=== PATIENT | male | born 1985 | race Caucasian/White ===

== ENCOUNTER 2019-02-17 16:39 | Inpatient (IN) | payer SELFPAY ==
[2019-02-17 17:10] VITALS: BP 141/89; PULSE 100; RESP 16; TEMP 36.7; O2SAT 98; BMI 22.2
--- NOTE | 2019-02-17 19:15 | ED_ITS ---
Entered by Ingrid Gutierrez, acting as scribe for Feb 17, 2019 16:39 HPI - Psych General: Chief Complaint: Psychiatric Symptoms Stated Complaint: Mhe Time Seen by Provider: 02/17/19 19:15 Source: patient and family Mode of arrival: ambulatory Limitations: no limitations History of Present Illness: HPI Narrative: 33 yo Male presents to Ed with complaint of psychiatric symptoms. Pt states he is stressed out and wants to go to the NPU. Pt's family states that the patient lost his father to a heart attack recently and then couldn't locate his mother yesterday. Pt's family states that the patient freaked out yesterday. Pt states he was treated for depression in 2012 or 2013 and was prescribed lorazepam once or twice a day. Pt states that he is not currently on any medications. Pt states that he was also previously treated with Paxil but didn't take it like he should. Pt denies any suicidal or homicidal ideation. Pt's grandmother states that she thinks he needs to be admitted to the NPU due to his episode of freaking out yesterday. Pt's grandmother states that the patient has been trying to get off of drugs. Pt states that he is not currently taking his suboxone because it makes him feel just as high as street drugs. Pt states that he would probably test positive for methamphetamine right now. complaint: feels depressed and other (stressed) Onset (ago): unknown Duration: getting worse History of same: Yes Relieving factors: none Exacerbating factors: none Context: recent drug abuse and significant life stressor Associated psychiatric symptoms: depression Associated symptoms: Reports depression; Deny homicidal ideation or suicidal ideation Treatments prior to arrival: none Review of Systems General: Reports: 10 or more systems reviewed and unremarkable except in HPI and below Psych: Reports: anxiety, depression and panic attacks; Denies: suicidal ideation or homicidal ideation PFSH ED PFSH: Statuses (acute, chronic, etc) shown below reflect problem list status as previously entered and may not be historically accurate Medical History (Updated 02/17/19 @ 22:49 by Marialuisa Jimenez MD, [facility] – [place]) Depression (Acute) Social History (Updated 02/17/19 @ 19:29 by Ingrid Gutierrez) Smoking and tobacco status: current every day smoker Substance/Drug Use: current Substance/Drug use type: Methamphetamine Physical Exam Const: COMMON NORMALS: no apparent distress, average body habitus, oriented x3, no limitations, healthy appearing, alert and well nourished HENMT: COMMON NORMALS: normocephalic, head/scalp atraumatic, hearing grossly normal bilaterally, external ears normal, EAC's normal, TM's normal bilaterally, external nose normal, nasal mucous membranes and turbinates normal, moist oral mucous membranes, oropharynx normal, dentition normal and gingiva normal HEAD & SCALP: normocephalic and atraumatic NOSE: external nose normal and nasal mucous membranes and turbinates normal EXTERNAL EAR: Yes external ears normal EXTERNAL AUDITORY CANAL: EAC's normal TYMPANIC MEMBRANE: TM's normal bilaterally Eye: COMMON NORMALS: PERRL, EOMs intact bilaterally, conjunctivae normal, no scleral icterus, no papilledema, normal visual scott by confrontation and fundi normal bilaterally CONJUNCTIVA: Yes conjunctivae normal PUPIL: Yes PERRL DIRECT OPHTHALMOSCOPY: Yes no papilledema and Yes fundi normal bilaterally Neck/C-Spine: COMMON NORMALS: full ROM, supple, no meningeal signs, no JVD and no carotid bruits Chest: COMMONS NORMALS: inspection of chest normal and palpation of chest normal Resp: COMMON NORMALS: normal respiratory effort, no retractions, no use of accessory muscles, clear to auscultation bilaterally and percussion normal AUSCULTATION: clear to auscultation bilaterally PERCUSSION: percussion normal Cardio: COMMON NORMALS: no JVD, regular rate, regular rhythm, S1 normal heart sound, S2 normal heart sound, no gallops, no clicks, no murmurs, no rub and peripheral pulses 2+ throughout RATE: regular rate RHYTHM: regular rhythm HEART SOUNDS: S1 normal and S2 normal PERIPHERAL PULSES: pulses 2+ throughout GI: COMMON NORMALS: normal to inspection, nondistended, normoactive bowel sounds, soft to palpation, non-tender, no hepatosplenomegaly, no masses and no bruits PALPATION: Yes soft and Yes no hepatosplenomegaly : COMMON NORMALS: Yes no CVA tenderness BLADDER/KIDNEY EXAM: Yes no CVA tenderness Back/Pelvis: COMMON NORMALS: no CVA tenderness Extremity: COMMON NORMALS: normal to inspection, full ROM, normal capillary refill, no joint enlargement, no clubbing, cyanosis or edema, no calf tenderness and no pedal edema Neuro: COMMON NORMALS: oriented x3 SENSORIUM/ORIENTATION: Yes alert MENINGEAL SIGNS: Yes no meningeal signs Psych: COMMON NORMALS: thought process normal, speech normal, denies homicidal ideation and denies suicidal ideation APPEARANCE: Yes grossly normal ATTITUDE: Yes calm SPEECH: Yes normal speech THOUGHT PROCESS: normal thought process THOUGHT CONTENT: Yes normal thought content Skin: COMMON NORMALS: no rashes or lesions noted, no wounds, skin turgor normal, no jaundice, no petechiae and no mottling GENERAL SKIN EXAM: no rashes or lesions noted and turgor normal MDM - Psych MDM Narrative: Medical decision making narrative: Patient who presented to the ED with symptoms of depression and bipolar disorder. He is admitted to the neuropsychiatric unit for further evaluation and management. Lab Data: Labs: Lab Results 02/17/19 02/17/19 02/17/19 Range/Units 19:40 19:55 19:55 WBC 6.1 (4.0-10.0) 10^3/ uL RBC 4.83 (4.1-5.3) 10^6/u L Hgb 13.8 (11.7-16.6) g/dL Hct 41.8 L (42.0-52.0) % MCV 86.5 (80-94) fL MCH 28.6 (28.0-34.0) pg MCHC 33.0 (30.0-36.0) g/dL RDW 12.5 (12.1-15.1) % Plt Count 260 (130-400) 10^3/c mm MPV 9.8 (7.4-10.4) fL Neut % (Auto) 54.9 % Lymph % (Auto) 33.2 % Gregg % (Auto) 11.1 % Eos % (Auto) 0.0 % Baso % (Auto) 0.5 % Neut # (Auto) 3.4 (1.8-7.7) 10^3/u L Lymph # (Auto) 2.0 (0.8-4.8) 10^3/u L Gregg # (Auto) 0.7 (0.2-0.9) 10^3/u L Eos # (Auto) 0.0 (0.0-0.8) 10^3/u L Baso # (Auto) 0.0 (0.0-0.1) 10^3/u L Nucleated RBC % (a uto) 0 % Nucleated RBCs # 0.0 /100WBC Sodium 138 (136-145) mmol/L Potassium 4.1 (3.5-5.1) mmol/L Chloride 101 (98-107) mmol/L Carbon Dioxide 26 (22-29) mmol/L Anion Gap 15.1 (5-19) BUN 9 (6-20) mg/dL Creatinine 0.7 (0.7-1.2) mg/dL GFR Calculation 130.7 H (90-130) mL/min Glucose 102 (74-109) mg/dL Calcium 9.9 (8.6-10.0) mg/Dl Total Bilirubin 0.2 (0.15-1.2) mg/dL AST 12 (0-40) U/L ALT 9 (0-41) U/L Alkaline Phosphata se 95 (40-130) IU/L Total Protein 7.2 (6.6-8.7) g/dL Albumin 4.4 (3.5-5.2) g/dL Globulin 2.8 (1.3-4.6) g/dL Salicylates < 0.3 L (3-10) mg/dL Urine Opiates Scre en Negative (Negative) ng/mL Acetaminophen < 5.0 L (10-30) ug/mL Ur Barbiturates Sc reen Negative (Negative) ng/mL Ur Phencyclidine S crn Negative (Negative) ng/mL Ur Amphetamines Sc reen Positive H (Negative) ng/mL U Benzodiazepines Scrn Positive H (Negative) ng/mL Urine Cocaine Scre en Negative (Negative) ng/mL U Marijuana (THC) Screen Negative (Negative) ng/mL Ethyl Alcohol < 10 (0-10) mg/dL Discharge Plan Discharge Patient Disposition: Admitted As Inpatient Admit Provider: Conrado Elizalde Clinical Impression: Depression, Bipolar disorder Condition: Stable Interventions: ED Discharge Assessment Last Done: 02/17/19 22:29 Coding Level of Care Code ED Cutting And Splicing Supervisor for Chg Fwd Exam Problem Focused The documentation recorded by the Matt acharya Carmen, accurately reflects the service I personally performed and the decisions made by Barbara kennedy Adegoke I, MD, [facility] – [place], [place] Feb 17, 2019 16:39
--- NOTE | 2019-02-17 19:48 | PC.NURSE ---
Patient Assessment Patient reports to ED with extreme stress, anxiousness, and general feelings of overwhelm. Patient lost his father in the previous year unexpectedly and states he was unable to get ahold of his mother via phone yesterday and has been very anxious since.
--- NOTE | 2019-02-17 19:57 | PC.NURSE ---
Patient denies SI at this time. Patient has family at bedside.
[2019-02-17 20:01] LABS: Amphetamines Screen Urine Positive (Negative); Barbiturates Screen Urine Negative (Negative); Benzodiazepines Screen Urine Positive (Negative); Cocaine Screen Urine Negative (Negative); Opiate Screen Urine Negative (Negative); PCP Screen Urine Negative (Negative); THC Screen Urine Negative (Negative)
[2019-02-17 20:05] LABS: Basophils % 0.5 %; Hematocrit 41.8 % (42.0-52.0); Hemoglobin 13.8 g/dL (11.7-16.6); Lymphocytes % 33.2 %; Mean Corpuscular Hemoglobin 28.6 pg (28.0-34.0); Mean Corpuscular Volume 86.5 fL (80-94); Mean Platelet Volume 9.8 fL (7.4-10.4); Monocytes # 0.7 10^3/uL (0.2-0.9); Monocytes % 11.1 %; Neutrophils # 3.4 10^3/uL (1.8-7.7); Neutrophils % 54.9 %; Nucleated Red Blood Cells % 0 %; Platelet Count 260 10^3/cmm (130-400); Red Blood Count 4.83 10^6/uL (4.1-5.3); Red Cell Distribution Width 12.5 % (12.1-15.1); White Blood Count 6.1 10^3/uL (4.0-10.0)
[2019-02-17 20:19] LABS: Alanine Aminotransferase 9 U/L (0-41); Albumin Level 4.4 g/dL (3.5-5.2); Alkaline Phosphatase 95 IU/L (40-130); Anion Gap 15.1 (5-19); Aspartate Amino Transferase 12 U/L (0-40); Blood Urea Nitrogen 9 mg/dL (6-20); Calcium 9.9 mg/Dl (8.6-10.0); Carbon Dioxide 26 mmol/L (22-29); Chloride 101 mmol/L (98-107); Globulin 2.8 g/dL (1.3-4.6); Glomerular Filtration Rate 130.7 mL/min (90-130); Glucose 102 mg/dL (74-109); Potassium 4.1 mmol/L (3.5-5.1); Sodium 138 mmol/L (136-145); Total Bilirubin 0.2 mg/dL (0.15-1.2); Total Protein 7.2 g/dL (6.6-8.7)
[2019-02-17 20:21] LABS: Acetaminophen < 5.0 ug/mL (10-30); Alcohol Level < 10 mg/dL (0-10); Salicylate < 0.3 mg/dL (3-10)
[2019-02-17 23:18] VITALS: BP 128/87; PULSE 88; RESP 19; TEMP 36.4; O2SAT 99
[2019-02-18 06:00] VITALS: BP 128/83; PULSE 83; RESP 18; TEMP 36.7; O2SAT 97
[2019-02-18] MEDS: nicotine 21 mg Patch 1 PATCH TRANSDERMA (08:42)
[2019-02-18] MEDS: propranolol 20 mg Tablet PO (11:12)
--- NOTE | 2019-02-18 11:14 | PC.NURSE ---
PT NOTE: INDERAL 20MG PO GIVEN FOR ANXIETY.
--- NOTE | 2019-02-18 13:29 | P.HP_ITS ---
Providers/Chief Complaint Admitting Physician: Conrado Elizalde MD Chief Complaint: Mhe HPI NPU History of Present Illness Bakari Lord is a 33 year old male who presents today reporting that he was first hospitalized in 2018 and presents today as his drug use continues to go unchecked and his depression mounds. He reports that prior to being 17 or so he started experimenting with cigarettes alcohol marijuana and by the time he was 18 or 19 now only had that become a problem but he was already using other drugs. He had a possession charge in 2016 and over the last 2 years the consequences of his drug use have mounted. He had an inpatient rehab at [facility] last year that ended in August it was a 30-day program that he completed. He reports that he has struggled with depression and that his dad of a heart attack in March of last year and he has been living with his dad and his dad also struggle with addiction. He also went to [place] for the 120-day shock program last year this was secondary to a probation violation he also has another possession charge. He feels very anxious and somewhat regretful of the fact that he is messed so much. We discussed the risk benefits and alt ernatives of antidepressant as well as naltrexone. He endorsed having a trial of naltrexone to his belief when he was in rehab and then it was not effective per his report. He denies still having significant treatment for mental health issues reporting never having been on an antidepressant to his knowledge except for maybe Paxil which she reports he never gave any chance after his last hospitalization in 2018. He understood and agreed to proceed as is documented in this note. Psychiatric history: As above no medications this is second hospitalization. Substance abuse history: He endorses having a history of drug use that spans over half of his life. He reports smoking cigarettes, but denies significant alcohol use at this point denies marijuana use at this point reports that most of his energies and activities around methamphetamine use. He has been to rehab but denies having any DUIs. Family history: Endorses mental health issues on both sides of the family. He reports addiction issues on his mother's side of the family and with his father. He is unclear if there have been any suicide attempts or completions in his family. Developmental history: He reports that his mom's and delivery of him were unremarkable. That he learned to walk and talk and met his developmental milestones on time. He denied any speech therapy, emotional support learning support or special education classes. Psychosocial history: His mother and father were together when he was born and he is the only product of their union. Neither of them had any other children that he is aware of. His childhood was tough because he feels his family really was not there for him. He denies any emotional physical or sexual abuse. He did not graduate from high school but did get his GED in 2019 during the hunting 20-day stay. He endorses that he is a heterosexual and his longest relationship was 5 years. He is never been , he has never had children, he has never been in the , and he does not endorse any jainism belief system. He reports he did hold a job from 2015 2009 reports that he currently lives with his paternal grandparents. Legal history: He endorses numerous [facility] stays over mostly short except for that recent 1. Meds NPU Home Medications Medication Instructions Recorded Confirmed Type No Known Home Medications 02/17/19 02/17/19 History Allergies Allergy/AdvReac Type Severity Reaction Status Date / Time No Known Allergies Allergy Verified 02/17/19 17:16 PFSH NPU PFSH: Statuses (acute, chronic, etc) shown below reflect problem list status a s previously entered and may not be historically accurate Medical History (Updated 02/19/19 @ 06:43 by Conrado Elizalde MD) Depression (Acute) Social History (Updated 02/17/19 @ 19:29 by Ingrid Gutierrez) Smoking and tobacco status: current every day smoker Substance/Drug Use: current Substance/Drug use type: Methamphetamine Mental Status Exam MSE Comments: This is a well-nourished well-developed white male with adequate dress grooming and eye contact. Poor dentition. No abnormal movements except for psychomotor retardation. Cooperative with exam in no acute distress. Speech was decreased rate and volume. Mood described as depressed affect congruent. Thought process organized. Thought content: Patient denied any suicidal or homicidal ideation, there were no delusions reported or noted, he denied any auditory visual hallucinations. Attention and concentration were intact and memory appeared reliable but none were formally tested. He is alert and oriented x3. Insight and judgment appear fair. Vitals/I&O/Wt Last Vital Signs Temp 97.6 F 02/19/19 06:00 Pulse 75 02/19/19 06:00 Resp 22 H 01/09/20 06:00 BP 97/59 02/19/19 06:00 Pulse Ox 98 02/19/19 06:00 Weight last 48 hrs Weight 70.307 kg A&P Assessment and plan (1) Methamphetamine dependence: Status: Acute Code(s): F15.20 - Other stimulant dependence, uncomplicated Additional A&P Information Additional A&P Information: This is a 33-year-old white male with a long history and depression and anxiety with the mental health issues having limited to no interventions who presents in active addiction with low mood and recent thoughts to kill himself. 1. Continue current medications. Except: 2. Start Prozac 20 mg p.o. every morning. 3. Encourage individual, group and milieu therapy. 4. Continue every 15 minute checks for safety. 5. Encourage discharge to the highest level of sober living/recovery treatment to which he is willing to commit. Involuntary Hold Information 96 Hour Hold: 96 Hour Involuntary Admission: No Attestations NPU Medical Necessity Statement*: Inpatient hospitalization is medically necessary and the clinically appropriate intervention at this time. Patient will be in the hospital for over 2 midnights. We will monitor medication and titrate to effect. Likely length of stay 2 to 4 days. Coding Level of Care Code Acute Implementation Project Manager for Jn Leonard Diagnoses Methamphetamine dependence F15.20
[2019-02-18 14:00] VITALS: BP 100/66; PULSE 89; RESP 18; TEMP 36.8; O2SAT 98
[2019-02-18 19:55] VITALS: BP 109/67; PULSE 80; RESP 22; TEMP 36.9; O2SAT 98
[2019-02-19 06:00] VITALS: BP 97/59; PULSE 75; RESP 22; TEMP 36.4; O2SAT 98
--- NOTE | 2019-02-19 08:08 | P.PN_ITS ---
Subjective NPU Subjective: Interval history: Bakari presents today reporting that he is feeling a little better. He still has not identified an exact course but reports that he is optimistic that as his mood gets better that things will get better overall. We discussed Vivitrol and his previous response to ReVia wondering if it represented an adverse response to the medication or indication he had been using too close to the initiation of the medication. Unfortunately he does not have recollection of those circumstances. He reports that he is sleeping a lot catching up on his sleep and eating fine. Mental Status Exam MSE Comments: This is a well-nourished well-developed white male with adequate dress grooming and eye contact. Poor dentition. No abnormal movements except for psychomotor retardation. Cooperative with exam in no acute distress. Speech was decreased rate and volume. Mood described as depressed but better slightly, affect congruent. Thought process organized. Thought content: Patient denied any suicidal or homicidal ideation though he does report thoughts of suicide he endorses feeling safe on the unit and being able to contract for safety, there were no delusions reported or noted, he denied any auditory visual hallucinations. Attention and concentration were intact and memory appeared reliable but none were formally tested. He is alert and oriented x3. Insight and judgment appear fair. Vitals/I&O/Wt Last Vital Signs Temp 98.2 F 02/20/19 06:00 Pulse 73 02/20/19 06:00 Resp 16 02/20/19 06:00 BP 125/83 02/20/19 06:00 Pulse Ox 98 02/20/19 06:00 A&P Additional A&P Information Additional A&P Information: This is a 33-year-old white male with a long history and depression and anxiety with the mental health issues having limited to no interventions who presents in active addiction with low mood and recent thoughts to kill himself. 1. Continue current medications. 2. Encourage individual, group and milieu therapy. 3. Continue every 15 minute checks for safety. 4. Encourage discharge to the highest level of sober living/recovery treatment to which he is willing to commit. Involuntary Hold Information 96 Hour Hold: 96 Hour Involuntary Admission: No Attestations NPU Medical Necessity Statement*: Inpatient hospitalization is medically necessary and the clinically appropriate intervention at this time. We will monitor medication and titrate to effect. Likely length of stay 2 to 4 days. Coding Level of Care Code Acute Pathology Collector for Jn Leonard
[2019-02-19] MEDS: propranolol 20 mg Tablet PO (10:58)
[2019-02-19] MEDS: fluoxetine 20 mg Capsule PO (10:59)
[2019-02-19] MEDS: nicotine 21 mg Patch 1 PATCH TRANSDERMA (11:04)
--- NOTE | 2019-02-19 11:05 | PC.NURSE ---
PRN INDERAL 20 MG GIVEN PO PER PT C/O ANXIETY. ISOLATIVE TO ROOM, DID NOT PARTICIPATE IN MORNING GROUP SESSION. ASKED FOR THE LITTLE BLUE PILL THEY GAVE ME YESTERDAY. WILL CONT TO MONITOR.
[2019-02-19 14:00] VITALS: BP 96/60; PULSE 78; RESP 16; TEMP 36.8; O2SAT 97
[2019-02-19 20:44] VITALS: BP 107/63; PULSE 81; RESP 16; TEMP 36.6; O2SAT 97
[2019-02-20 06:00] VITALS: BP 125/83; PULSE 73; RESP 16; TEMP 36.8; O2SAT 98
[2019-02-20] MEDS: fluoxetine 20 mg Capsule PO (09:05)
[2019-02-20] MEDS: nicotine 21 mg Patch 1 PATCH TRANSDERMA (12:09)
[2019-02-20 14:00] VITALS: BP 108/69; PULSE 89; RESP 18; TEMP 36.4; O2SAT 95
--- NOTE | 2019-02-20 14:31 | P.PN_ITS ---
Subjective NPU Subjective: Interval history: Bakari presented to the session reporting he is doing better on the medication but is still really exhausted from being up for days. He is endorsing a plan to return to live with grandmother but social workers are working hard to figure out if that is really viable or where grandma is in all this. He is resistant to talk about rehabilitation. Mental Status Exam MSE Comments: This is a well-nourished well-developed white male with adequate dress grooming and eye contact. Poor dentition. No abnormal movements except for psychomotor retardation. Cooperative with exam in no acute distress. Speech was decreased rate and volume. Mood described as depressed but better slightly, affect congruent. Thought process organized. Thought content: Patient denied any suicidal or homicidal ideation though he does report thoughts of suicide he endorses feeling safe on the unit and being able to contract for safety, there were no delusions reported or noted, he denied any auditory visual hallucinations. Attention and concentration were intact and memory appeared reliable but none were formally tested. He is alert and oriented x3. Insight and judgment appear fair. Vitals/I&O/Wt Last Vital Signs Temp 98.2 F 02/20/19 06:00 Pulse 73 02/20/19 06:00 Resp 16 02/20/19 06:00 BP 125/83 02/20/19 06:00 Pulse Ox 98 02/20/19 06:00 A&P Additional A&P Information Additional A&P Information: This is a 33-year-old white male with a long history and depression and anxiety with the mental health issues having limited to no interventions who presents in active addiction with low mood and recent thoughts to kill himself. 1. Continue current medications. 2. Encourage individual, group and milieu therapy. 3. Continue every 15 minute checks for safety. 4. Encourage discharge to the highest level of sober living/recovery treatment to which he is willing to commit. Involuntary Hold Information 96 Hour Hold: 96 Hour Involuntary Admission: No Attestations NPU Medical Necessity Statement*: Inpatient hospitalization is medically necessary and the clinically appropriate intervention at this time. We will monitor medication and titrate to effect. Likely length of stay 2 to 4 days. Coding Level of Care Code Acute Data Communications Engineer for Jn Leonard
[2019-02-20 19:51] VITALS: BP 118/79; PULSE 88; RESP 18; TEMP 36.6; O2SAT 96
[2019-02-21 06:00] VITALS: BP 108/69; PULSE 72; RESP 16; TEMP 36.6; O2SAT 97
[2019-02-21] MEDS: fluoxetine 20 mg Capsule PO (09:06)
[2019-02-21] MEDS: nicotine 21 mg Patch 1 PATCH TRANSDERMA (12:20)
[2019-02-21 13:49] VITALS: BP 119/67; PULSE 84; RESP 18; TEMP 36.7; O2SAT 96
--- NOTE | 2019-02-21 14:37 | P.PN_ITS ---
Subjective NPU Subjective: Interval history: Bakari continues to be fairly lackluster. He denies that this represents fully a crash post mass binge. He reports that his lying around is a representation of low his mood is right now. We discussed the risks benefits and alternatives of considering Wellbutrin and he understood and agreed to proceed as is documented in his note. We reviewed different medication trials had a denies being on location in the past and was willing to give it a try. Mental Status Exam MSE Comments: This is a well-nourished well-developed white male with adequate dress grooming and eye contact. Poor dentition. No abnormal movements except for psychomotor retardation. Cooperative with exam in no acute distress. Speech was decreased rate and volume. Mood described as depressed, affect congruent. Thought process organized. Thought content: Patient denied homicidal ideation though he does report thoughts of suicide he endorses feeling safe on the unit and being able to contract for safety, there were no delusions reported or noted, he denied any auditory visual hallucinations. Attention and concentration were intact and memory appeared reliable but none were formally tested. He is alert and oriented x3. Insight and judgment appear fair. Vitals/I&O/Wt Last Vital Signs Temp 98.1 F 02/21/19 13:49 Pulse 84 02/21/19 13:49 Resp 18 02/21/19 13:49 BP 119/67 02/21/19 13:49 Pulse Ox 96 02/21/19 13:49 A&P Additional A&P Information Additional A&P Information: This is a 33-year-old white male with a long history and depression and anxiety with the mental health issues having limited to no interventions who presents in active addiction with low mood and recent thoughts to kill himself. 1. Continue current medications. Except: Initiate Wellbutrin SR 150 mg by mouth twice a day at approximately 8 a.m. and 5 PM 2. Encourage individual, group and milieu therapy. 3. Continue every 15 minute checks for safety. 4. Encourage discharge to the highest level of sober living/recovery treatment to which he is willing to commit. Involuntary Hold Information 96 Hour Hold: 96 Hour Involuntary Admission: No Attestations NPU Medical Necessity Statement*: Inpatient hospitalization is medically necessary and the clinically appropriate intervention at this time. We will monitor medication and titrate to effect. Likely length of stay 2 to 4 days Coding Level of Care Code Acute Physician Practice Manager for Jn Leonard
[2019-02-21] MEDS: buPROPion SR (12 HR) 150 mg Tablet PO (17:06)
[2019-02-21 19:42] VITALS: BP 111/70; PULSE 85; RESP 20; TEMP 36.7; O2SAT 97
[2019-02-22 06:00] VITALS: BP 133/63; PULSE 78; RESP 18; TEMP 36.6; O2SAT 98
[2019-02-22] MEDS: fluoxetine 20 mg Capsule PO (08:25)
[2019-02-22] MEDS: buPROPion SR (12 HR) 150 mg Tablet PO ×2 (08:25→17:07)
[2019-02-22] MEDS: nicotine 21 mg Patch 1 PATCH TRANSDERMA (12:14)
[2019-02-22 14:00] VITALS: BP 133/63; RESP 18; TEMP 36.6; O2SAT 98
--- NOTE | 2019-02-22 14:39 | P.PN_ITS ---
Subjective NPU Subjective: Interval history: Bakari presents today reporting that he has a plan moving forward. He reports that he has had a chance to talk to his grandparents who live close to [place]. They report a plan to support him trying to get things together but given their age and the recent weather they would rather not take multiple trips down here to see him. May come down they would like it to be to pick him up. He reports he feels the medication is helpful and he feels optimistic about moving forward with treatment outpatient and getting back on track with work in his personal life. He is eating and sleeping well. Mental Status Exam MSE Comments: This is a well-nourished well-developed white male with adequate dress grooming and eye contact. Poor dentition. No abnormal movements except for improving mild psychomotor retardation. Cooperative with exam in no acute distress. Speech was slightly decreased rate and volume. Mood described as getting better, affect congruent. Thought process organized. Thought content: Patient denied suicidal or homicidal ideation, there were no delusions reported or noted, he denied any auditory visual hallucinations. Attention and concentration were intact and memory appeared reliable but none were formally tested. He is alert and oriented x3. Insight and judgment appear fair. Vitals/I&O/Wt Last Vital Signs Temp 97.9 F 02/22/19 14:00 Pulse 78 02/22/19 06:00 Resp 18 02/22/19 14:00 BP 133/63 02/22/19 14:00 Pulse Ox 98 02/22/19 14:00 Weight last 48 hrs Weight 73.709 kg A&P Additional A&P Information Additional A&P Information: This is a 33-year-old white male with a long history and depression and anxiety with the mental health issues having limited to no interventions who presented in active addiction with depression which is improving on his current medication.. 1. Continue current medications. 2. Encourage individual, group and milieu therapy. 3. Continue every 15 minute checks for safety. 4. Encourage discharge to the highest level of sober living/recovery treatment to which he is willing to commit. Involuntary Hold Information 96 Hour Hold: 96 Hour Involuntary Admission: No Attestations NPU Medical Necessity Statement*: Inpatient hospitalization is medically necessary and the clinically appropriate intervention at this time. We will monitor medication and titrate to effect. Plan for discharged tomorrow Likely length of stay 1-2 days Coding Level of Care Code Acute Cutter Aluminum Sheet for Jn Leonard
[2019-02-22 14:51] VITALS: BP 122/69; PULSE 85; RESP 20; TEMP 36.9; O2SAT 98
[2019-02-22 20:07] VITALS: BP 123/68; PULSE 79; RESP 18; TEMP 36.9; O2SAT 97
[2019-02-23 06:00] VITALS: BP 112/68; PULSE 75; RESP 16; TEMP 36.9; O2SAT 97
[2019-02-23] MEDS: fluoxetine 20 mg Capsule PO (09:01)
[2019-02-23] MEDS: buPROPion SR (12 HR) 150 mg Tablet PO (09:01)
--- NOTE | 2019-02-23 12:46 | PM.NDC ---
Diagnoses at Discharge Discharge Diagnosis (1) Methamphetamine dependence: Status: Acute Reason for Visit Reason for Visit: Reason For Visit: Mhe Brief History: HPI NPU History of Present Illness Bakari Lord is a 33 year old male who presents today reporting that he was first hospitalized in 2018 and presents today as his drug use continues to go unchecked and his depression mounds. He reports that prior to being 17 or so he started experimenting with cigarettes alcohol marijuana and by the time he was 18 or 19 now only had that become a problem but he was already using other drugs. He had a possession charge in 2016 and over the last 2 years the consequences of his drug use have mounted. He had an inpatient [facility] that ended in August it was a 30-day program that he completed. He reports that he has struggled with depression and that his dad of a heart attack in March of last year and he has been living with his dad and his dad also struggle with addiction. He also went to [place] for the 120-day shock program last year this was secondary to a probation violation he also has another possession charge. He feels very anxious and somewhat regretful of the fact that he is messed so much. We discussed the risk benefits and alternatives of antidepressant as well as naltrexone. He endorsed having a trial of naltrexone to his belief when he was in rehab and then it was not effective per his report. He denies still having significant treatment for mental health issues reporting never having been on an antidepressant to his knowledge except for maybe Paxil which she reports he never gave any chance after his last hospitalization in 2018. He understood and agreed to proceed as is documented in this note. Psychiatric history: As above no medications this is second hospitalization. Substance abuse history: He endorses having a history of drug use that spans over half of his life. He reports smoking cigarettes, but denies significant alcohol use at this point denies marijuana use at this point reports that most of his energies and activities around methamphetamine use. He has been to rehab but denies having any DUIs. Family history: Endorses mental health issues on both sides of the family. He reports addiction issues on his mother's side of the family and with his father. He is unclear if there have been any suicide attempts or completions in his family. Developmental history: He reports that his mom's and delivery of him were unremarkable. That he learned to walk and talk and met his developmental milestones on time. He denied any speech therapy, emotional support learning support or special education classes. Psychosocial history: His mother and father were together when he was born and he is the only product of their union. Neither of them had any other children that he is aware of. His childhood was tough because he feels his family really was not there for him. He denies any emotional physical or sexual abuse. He did not graduate from high school but did get his GED in 2019 during the hunting 20-day stay. He endorses that he is a heterosexual and his longest relationship was 5 years. He is never been , he has never had children, he has never been in the , and he does not endorse any zoroastrianism belief system. He reports he did hold a job from 2015 2009 reports that he currently lives with his paternal grandparents. Legal history: He endorses numerous snf stays over mostly short except for that recent 1. Hospital Course Hospital Course Bakari presented to the neuro psych unit with multiple past hospitalizations and recent legal issues secondary to his alcohol use. He slowly acclimated to the individual, group and milieu therapies provided. During the stay he was started on Prozac which he tolerated well and additionally was placed on Wellbutrin SR twice a day. He responded well to this combination. During the hospitalization he had routine laboratory studies which were within normal limits except for a few outliers. Additionally he had a general medical evaluation which was within normal limits and revealed no new acute processes. Discharge Summary At the time of discharge he denied any lethality, his mood and anxiety had improved, his withdrawal was resolving and he endorsed a plan to avoid drugs of abuse. He had achieved the maximum benefit from an inpatient hospitalization so he was discharged. Involuntary Hold Information 96 Hour Hold: 96 Hour Involuntary Admission: No Mental Status Exam MSE Comments: This is a well-nourished well-developed white male with adequate dress grooming and eye contact. Poor dentition. No abnormal movements . Cooperative with exam in no acute distress. Speech was more normal rate and volume. Mood described as much better, affect congruent. Thought process organized. Thought content: Patient denied suicidal or homicidal ideation, there were no delusions reported or noted, he denied any auditory visual hallucinations. Attention and concentration were intact and memory appeared reliable but none were formally tested. He is alert and oriented x3. Insight and judgment appear fair. Discharge Data Vitals: Last Vital Signs Temp 98.4 F 02/23/19 06:00 Pulse 75 02/23/19 06:00 Resp 16 02/23/19 06:00 BP 112/68 02/23/19 06:00 Pulse Ox 97 02/23/19 06:00 Discharge Plan Discharge Patient Disposition: Home, Self-Care Condition: Stable Prescriptions: New propranolol 20 mg Tablet 20 mg PO TID PRN (Reason: Anxiety) 30 Days Qty: 90 RF: 1 fluoxetine 20 mg Capsule 20 mg PO DAILY 30 Days Qty: 30 RF: 1 bupropion HCl 150 mg Tablet Sustained-Release 12 Hr 150 mg PO BID 30 Days Qty: 60 RF: 1 Continued No Known Home Medications RF: 0 Discharge Orders: Discharge Order (Routine); Ordered 02/23/19 Ordered By: Conrado Elizalde Activity Restrictions/Additional Instructions: You said that you will stay with rufino and it really depends on what she is willing to do to help you. It was stated that you might consider going to [facility] again. [facility] Address: [address] [place] [id number] You also said that you will continue to work with your Furs Salesperson but this worker does not need to call this person. You said that you will be accountable to stay sober. You are encouraged to continue your outpatient treatment for substance abuse at [facility] in [facility]. You said that you are aware that it might be possible to get medication assistance at [facility] ([facility]) here in [place]. Do contact [facility] if you want to seek out more assistance from them. [facility] ([facility]) [address] [place] [address] Your medicine that you currently have could be managed by [facility] in [facility]. You might want to consider doing your follow-up there. It is recommended that you do so within 3-5 days. [facility] [address] [place] [address] . Patient Assistance program/sliding scale is available at [facility]. Application is being provided to you. Do call if you have any questions by calling Patient Accounts at [phone] Discharge Date/Time: 02/23/19 13:35 Discharge Attestations NPU Time Spent in Discharge Care*: less than 30 min Specific Discharge Activities: Specific discharge activities: educating patient, discussing with manager of case/social workers/dc planners, documenting/other paperwork and evaluating patient/reviewing data Coding Level of Care Code Acute Exceptional Student Education Aide for Jn Fwd Diagnoses Methamphetamine dependence F15.20
[2019-02-23] MEDS: propranolol 20 mg Tablet PO (14:17)
[2019-02-23] MEDS: nicotine 21 mg Patch 1 PATCH TRANSDERMA (14:17)
[2019-02-23 15:55] VITALS: RESP 16; TEMP 36.9; O2SAT 97
== END 2019-02-23 13:35 | disposition home or self-care (01) | DRG 897 ==
LOC: ER 19:15 → NP 22:14
PROVIDERS: Emergency Medicine; Admitting Provider Psychiatry & Neurology Psychiatry; Emergency Provider Family Medicine; Visit Provider Psychiatry & Neurology Psychiatry
DX: F15.229 Other stimulant dependence with intoxication, unspecified (principal); F32.9 Major depressive disorder, single episode, unspecified; F17.210 Nicotine dependence, cigarettes, uncomplicated
CPT/HCPCS: 12345; 36415; 80053; 80307; 85025; 99284

== ENCOUNTER → 2020-09-21 14:11 | Outpatient (BNVA) | payer OTHER, SELFPAY | PROVIDERS: Visit Provider Nurse Practitioner Family | DX: Z20.822 Contact with and (suspected) exposure to COVID-19 (principal) | CPT/HCPCS: 87635 ==